=== PATIENT | female | born 1995 | race Caucasian/White ===

== ENCOUNTER 2025-02-05 17:05 | Emergency (ER) | payer BC ==
[~2025-02-05] VITALS: Ht 160 cm; Wt 54.4 kg
[2025-02-05] MEDS ORDERED: IBUPROFEN 400 MG TABLET ONE (17:55)
[2025-02-05] MEDS: IBUPROFEN 400 MG TABLET PO ONE (17:58)
[2025-02-05 18:21] VITALS: BP 103/73; TEMP 98.5; O2SAT 98
== END 2025-02-05 18:22 | disposition home or self-care (01) ==
LOC: ER 17:12
DX: R07.89 Other chest pain (principal); F17.200 Nicotine dependence, unspecified, uncomplicated
CPT/HCPCS: 71045-TC